=== PATIENT | male | born 1960 | race Caucasian/White ===

== ENCOUNTER 2019-10-19 05:57 | Day surgery (SDC) | payer BC ==
[2019-10-13 10:20] LABS: Absolute Lymphocytes (CBC) 2.1 K/uL (0.7-4.9); Basophils % 1.3 % (0-1.3); Hematocrit 46.7 % (39.6-49.0); Lymphocytes % 25.9 % (15.3-44.8); MPV 7.4 fL (7.6-11.3); RBC Red Blood Cell Count 5.09 M/uL (4.33-5.43)
[2019-10-13 10:26] LABS: Protime INR 0.91
[2019-10-13 10:34] LABS: Potassium 4.2 mmol/L (3.5-5.1)
--- NOTE | 2019-10-13 10:47 | RAD REPORT ---
EXAM DESCRIPTION: RAD - Chest Pa And Lat (2 Views) - 10/13/2019 9:58 am CLINICAL HISTORY: preop Chest pain. COMPARISON: CHEST PA AND LAT 2 VIEW dated 11/24/2013 FINDINGS: The lungs are clear. The heart is normal in size. No displaced fractures. IMPRESSION: No acute or concerning finding suspected.
--- NOTE | 2019-10-13 11:14 | EKG ---
Test Date: 2019-10-13 Test Time: 08:36:10 Gravel Wheeler: DESTIN MEASUREMENT RESULTS: Intervals: Rate: 60 LA: 148 QRSD: 86 QT: 426 QTc: 426 [place]: P: 48 LA: 148 QRS: 31 T: 32 INTERPRETIVE STATEMENTS: Normal sinus rhythm Septal infarct, age undetermined Abnormal ECG Compared to ECG 04/10/2004 10:25:00 No significant changes Electronically Signed On 10-13-19 11:13:24 CDT by Rian Dotson
--- OUTSIDE RECORDS SUMMARY | 2019-10-19 05:51 | XMS REPORT | Clinical Summary ---
:1960 Author Organization [facility] Address [address] [place] [address] Care Team Providers Name Role Phone Unavailable Primary Care Provider Unavailable Allergies Not on File Medications Not on file Active Problems Not on file Social History Tobacco Use Types Packs/Day Years Used Date Never Assessed Sex Assigned at Date Recorded Not on file Job Start Date Occupation Industry Not on file Not on file Not on file Travel History Travel Start Travel End No recent travel history available. 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
--- OUTSIDE RECORDS SUMMARY | 2019-10-19 05:52 | XMS REPORT ---
:1960 Author Organization [facility] t Address [address] [place] [address] Care Team Providers Name Role Phone ZACCA Attending Clinician Unavailable Problems Condition Condition Condition Status Onset Resolution Last Treating Co mments Source Name Details Category Date Date Treatment Clinician Date Impingemen Impingemen Problem Active [facility] syndrome t syndrome Elena kes - of right of right [facility] Pain in Pain in Problem Active [facility] - right right [facility] shoulder shoulder [facility] Tear of Tear of Problem Active [facility] right right [facility] - rotator rotator Memoria cuff, cuff, l unspecifie unspecifie Ou tpati d tear d tear ent extent, extent, Clinics unspecifie unspecifie d whether d whether traumatic traumatic Subacromia Subacromia Problem Active [facility] bursitis l bursitis Elena kes - of right of right Memori a shoulder shoulder l [facility] Arthrosis Arthrosis Problem Active [facility] of right of right [facility] - acromiocla acromiocla Me moria vicular vicular l joint joint [facility]pat[facility] ent Clinics Allergies, Adverse Reactions, Alerts This patient has no known allergies or adverse reactions. Social History Social Habit Start Date Stop Date Quantity Comments Source Sex Assigned At Beny Nick Medications Ordered Filled Start Stop Current Ordering Indication Dosage Frequency Signature Comments Components Source Medication Medication Date Date Medication? Clinician (SIG) Name Name Carvedilol Carvedilol Yes Catracho not [facility] Ramipril Ramipril Yes Catracho not [facility] Clopidogrel Clopidogrel Yes Catracho not [facility] Bisulfate Bisulfate Valiente defined Elena kes - [facility] Amlodipine Amlodipine Yes Catracho not [facility] Besylate Besylate Valiente defined [facility] Rosuvastati Rosuvastati Yes Catracho not [facility] n Calcium n Calcium Valiente defined Elena kes - [facility] Glimepiride Glimepiride Yes Catracho not [facility] Jardiance Jardiance Yes Catracho not [facility] Doxycycline Doxycycline Yes Catracho not [facility] Hyclate Hyclate Valiente defined [facility] Aspir-81 Aspir-81 Yes Catracho not [facility] Ciprofloxac Ciprofloxac Yes Catracho not [facility] in HCl in HCl Valiente defined [facility] Plenvu Plenvu Yes Catracho not [facility] Procedures This patient has no known procedures. Plan of Care Planned Activity Planned Date Details Comments Source Future Scheduled 2019-12-31 INFLUENZA VACCINE [facility] 00:00:00 [code = INFLUENZA VACCINE] Future Scheduled 2009 COLONOSCOPY SCREENING [place] [place] [facility] 00:00:00 [code = COLONOSCOPY SCREENING] Future Scheduled 2009 SHINGLES VACCINES [facility] 00:00:00 (#1) [code = SHINGLES VACCINES (#1)] Encounters Start End Encounter Admission Attending Care Care Encounter Source Date/Time Date/Time Type Type Clinicians Facility Department ID 2019-10-04 2019-10-04 [facility] [id number] [facility] [address] 08:45:00 08[facility]45[facility] 2019-09-27 2019-09-27 Outpatient [facility] [id number] [address] 10:33:00 10:33:00 [facility] 2019-08-29 2019-08-29 Out[facility] [id number] [address] 10:00:00 10:00:00 [facility] Clinics 2019-07-25 2019-07-25 Outpatient [facility] [id number] [address] [place] [address] 00:00:00 00:00:00 KR[place] [address] 2019-06-21 2019-06-21 Outpatient Marta Buckley [id number] [address] 10:15:00 10:15:00 [facility] 2019-06-08 2019-06-08 Outpatient Marta Buckley [id number] 09:45:00 09:45:00 [facility] 2019-06-07 2019-06-07 Outpatient Marta Buckley [id number] 16:29:00 16:29:00 [facility] Results This patient has no known results.
--- OUTSIDE RECORDS SUMMARY | 2019-10-19 05:52 | XMS REPORT ---
:1960 Author Organization [employer] Care Team Providers Name Role Phone Catracho Valiente Provider Role Unavailable Allergies, Adverse Reactions, Alerts Substance Reaction Event Type N.K.D.A. 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 Assessment Pain in joint of right shoulder M25.511 Active Problem Pain in joint of right shoulder M25.511 Active Problem Subacromial bursitis of right M75.51 Active shoulder joint Medications Medication Code System Code Instructions Start End Date Status Dos age Date Rosuvastatin [facility] 71167-28 Active not define d Calcium 87-83 Amlodipine NDC 0 Active not defined Besylate Clopidogrel [facility] 22615-02 Active not defined Bisulfate 67-07 Ciprofloxacin HCl [facility] 44305-09 Active not d efined 50-14 Jardiance [facility] 34744-22 Active not defined 53-30 Carvedilol [facility] 51567-05 Active not defined 51-01 Plenvu [facility] 60772-22 Active not defined 00-01 Doxycycline [facility] 68597-61 Active not defined Hyclate 59-30 Glimepiride [facility] 68716-02 Active not defined 13-01 Aspir-81 NDC 0 Active not defined Ramipril [facility] 99501-44 Active not defined 54-01 Results No Known Results Summary Purpose [employer] Submission
--- OUTSIDE RECORDS SUMMARY | 2019-10-19 05:52 | XMS REPORT ---
:1960 Author Organization [employer] Care Team Providers Name Role Phone Catracho Valiente Provider Role Unavailable Allergies, Adverse Reactions, Alerts Substance Reaction Event Type N.K.D.A. Info Not Available Non Drug Allergy Problems Problem Type Condition Code Onset Dates Condition Statu s Assessment Pain in joint of right shoulder M25.511 Active Assessment Impingement syndrome of right M75.41 Active shoulder Problem Impingement syndrome of right M75.41 Active shoulder Problem Pain in joint of right shoulder M25.511 Active Problem Tear of right rotator cuff, M75.101 Active unspecified tear extent, unspecified whether traumatic Assessment Subacromial bursitis of right M75.51 Active shoulder joint Assessment Tear of right rotator cuff, M75.101 Active unspecified tear extent, unspecified whether traumatic Problem Subacromial bursitis of right M75.51 Active shoulder joint Medications Medication Code System Code Instructions Start End Date Status Dos age Date Carvedilol [facility] 86523-264 Active not defined 1-01 Ramipril [facility] 62458-762 Active not defined 4-01 Clopidogrel [facility] 24178-107 Active not define d Bisulfate 7-07 Amlodipine ND 0 Active not defined Besylate Rosuvastatin [facility] 41442-218 Active not defin ed Calcium 7-83 Glimepiride [facility] 65249-829 Active not define d 3-01 Jardiance [facility] 07999-382 Active not defined 3-30 Doxycycline [facility] 27562-220 Active not define d Hyclate 9-30 Aspir-81 NDC 0 Active not defined Results No Known Results Summary Purpose [employer]Works Submission
--- OUTSIDE RECORDS SUMMARY | 2019-10-19 05:52 | XMS REPORT ---
[...] End Date Status Dos age Date Carvedilol [facility] 87218-497 Active not defined 1-01 Rosuvastatin [facility] 77944-459 Active not defin ed Calcium 7-83 Jardiance [facility] 32383-420 Active not defined 3-30 Glimepiride [facility] 24342-722 Active not define d 3-01 Amlodipine ND 0 Active not defined Besylate Doxycycline [facility] 99866-401 Active not define d Hyclate 9-30 glyBURIDE-metFORM [facility] 62807-553 Active not defined IN 3-11 Clopidogrel [facility] 34013-528 Active not define d Bisulfate 7-07 Ramipril [facility] 60597-205 Active not defined 4-01 Aspir-81 NDC 0 Active not defined Results No Known Results Summary Purpose [employer]ClinicalWorks Submission
--- OUTSIDE RECORDS SUMMARY | 2019-10-19 05:52 | XMS REPORT ---
:1960 Author Organization [employer] Care Team Providers Name Role Phone Catracho Valiente Provider Role Unavailable Allergies No Known Allergies Problems Problem Type Condition Code Onset Dates Condition Statu s Problem Impingement syndrome of right M75.41 Active shoulder Problem Pain in joint of right shoulder M25.511 Active Problem Tear of right rotator cuff, M75.101 Active unspecified tear extent, unspecified whether traumatic Problem Subacromial bursitis of right M75.51 Active shoulder joint Medications No Known Medications Results No Known Results Summary Purpose [employer]Works Submission
--- OUTSIDE RECORDS SUMMARY | 2019-10-19 05:52 | XMS REPORT ---
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
--- OUTSIDE RECORDS SUMMARY | 2019-10-19 05:53 | XMS REPORT ---
[...] End Date Status Dos age Date Rosuvastatin [facility] 35652-95 Active not define d Calcium 87-83 Amlodipine [place] 0 Active not defined Besylate Doxycycline [facility] 61226-18 Active not defined Hyclate 59-30 Clopidogrel [facility] 21981-70 Active not defined Bisulfate 67-07 Aspir-81 NDC 0 Active not defined Carvedilol [facility] 66307-95 Active not defined 51-01 Plenvu [facility] 43668-75 Active not defined 00-01 Jardiance [facility] 49554-18 Active not defined 53-30 Glimepiride [facility] 76320-43 Active not defined 13-01 Ciprofloxacin HCl [facility] 95908-93 Active not d efined 50-14 Ramipril [facility] 34593-79 Active not defined 54-01 Results No Known Results Summary Purpose eClinicalWorks Submission
--- OUTSIDE RECORDS SUMMARY | 2019-10-19 06:00 | XMS REPORT ---
[...] End Date Status Dos age Date Rosuvastatin [facility] 90584-87 Active not define d Calcium 87-83 Amlodipine NDC 0 Active not defined Besylate Clopidogrel [facility] 17492-66 Active not defined Bisulfate 67-07 Ciprofloxacin HCl [facility] 63683-88 Active not d efined 50-14 Jardiance [facility] 96962-69 Active not defined 53-30 Carvedilol [facility] 17914-69 Active not defined 51-01 Plenvu [facility] 47643-04 Active not defined 00-01 Doxycycline [facility] 51188-19 Active not defined Hyclate 59-30 Glimepiride [facility] 68262-18 Active not defined 13-01 Aspir-81 NDC 0 Active not defined Ramipril [facility] 89496-69 Active not defined 54-01 Results No Known Results Summary Purpose [employer]ClinicalWorks Submission
--- OUTSIDE RECORDS SUMMARY | 2019-10-19 06:00 | XMS REPORT | Clinical Summary ---
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
--- OUTSIDE RECORDS SUMMARY | 2019-10-19 06:00 | XMS REPORT ---
[...] Date Status Dos age Date Carvedilol [facility] 74857-343 Active not defined 1-01 Rosuvastatin [facility] 09738-650 Active not defin ed Calcium 7-83 Jardiance [facility] 82474-859 Active not defined 3-30 Glimepiride [facility] 04016-765 Active not define d 3-01 Amlodipine ND 0 Active not defined Besylate Doxycycline [facility] 41511-956 Active not define d Hyclate 9-30 glyBURIDE-metFORM [facility] 07235-921 Active not defined IN 3-11 Clopidogrel [facility] 23992-304 Active not define d Bisulfate 7-07 Ramipril [facility] 25347-310 Active not defined 4-01 Aspir-81 NDC 0 Active not defined Results No Known Results Summary Purpose eClinicalWorks Submission
--- OUTSIDE RECORDS SUMMARY | 2019-10-19 06:00 | XMS REPORT ---
[...] End Date Status Dos age Date Carvedilol [facility] 11773-433 Active not defined 1-01 Ramipril [facility] 14730-640 Active not defined 4-01 Clopidogrel [facility] 42043-797 Active not define d Bisulfate 7-07 Amlodipine ND 0 Active not defined Besylate Rosuvastatin [facility] 74847-803 Active not defin ed Calcium 7-83 Glimepiride [facility] 60760-345 Active not define d 3-01 Jardiance [facility] 72082-284 Active not defined 3-30 Doxycycline [facility] 09717-732 Active not define d Hyclate 9-30 Aspir-81 NDC 0 Active not defined Results No Known Results Summary Purpose [employer]ClinicalWorks Submission
--- OUTSIDE RECORDS SUMMARY | 2019-10-19 06:00 | XMS REPORT ---
:1960 Author Organization [facility] t Address [address] [place] [address] Care Team Providers Name Role Phone ZACCA [...] Future Scheduled 2019-12-31 INFLUENZA VACCINE [facility] 00:00:00 [code = INFLUENZA VACCINE] Future Scheduled 2009 COLONOSCOPY SCREENING [place] [facility] [facility] 00:00:00 [code = COLONOSCOPY SCREENING] Future Scheduled 2009 SHINGLES VACCINES [facility] 00:00:00 (#1) [code = SHINGLES VACCINES (#1)] Encounters Start End Encounter Admission Attending Care Care Encounter Source Date/Time Date/Time Type Type Clinicians Facility Department ID 2019-10-04 2019-10-04 Outpatient [facility] [id number] [facility] 08:45:00 08:45:00 [facility] 2019-09-27 2019-09-27 Outpatient [facility] [id number] [facility] 10:33:00 10:33:00 [facility] 2019-08-29 2019-08-29 Outpatient [facility] [id number] [facility] [facility] 10:00:00 10:00:00 [facility] Clinics 2019-07-25 2019-07-25 Outpatient [facility] [id number] [address] [place] [address] 00:00:00 00:00:00 KR[place] [address] 2019-06-21 2019-06-21 Outpatient Marta Buckley [id number] [facility] 10:15:00 10:15:00 [facility] 2019-06-08 2019-06-08 Outpatient Marta Buckley [id number] [facility] 09:45:00 09:45:00 [facility] 2019-06-07 2019-06-07 Outpatient Marta Buckley [id number] [facility] 16:29:00 16:29:00 [facility] Results This patient has no known results.
--- OUTSIDE RECORDS SUMMARY | 2019-10-19 06:01 | XMS REPORT ---
[...] End Date Status Dos age Date Rosuvastatin [facility] 81855-00 Active not define d Calcium 87-83 Amlodipine ND 0 Active not defined Besylate Doxycycline [facility] 67062-72 Active not defined Hyclate 59-30 Clopidogrel [facility] 72958-09 Active not defined Bisulfate 67-07 Aspir-81 NDC 0 Active not defined Carvedilol [facility] 42040-88 Active not defined 51-01 Plenvu [facility] 13424-66 Active not defined 00-01 Jardiance [facility] 10886-58 Active not defined 53-30 Glimepiride [facility] 96121-40 Active not defined 13-01 Ciprofloxacin HCl [facility] 30584-19 Active not d efined 50-14 Ramipril [facility] 29493-96 Active not defined 54-01 Results No Known Results Summary Purpose [employer]ClinicalWorks Submission
[2019-10-19] MEDS ORDERED: NA CHLORIDE 0.9% 1,000 ML ONE ×2 (06:08→09:33)
[2019-10-19] MEDS ORDERED: CEFAZOLIN/SWI 1gm 1 GM/10 ML SYR ONE (06:17)
[2019-10-19] MEDS ORDERED: NS 0.9% VIAL 20 ML ONE (06:42)
[2019-10-19] MEDS ORDERED: dexAMETHasone 10 MG/ML VIAL ONE ×2 (06:42→08:50)
[2019-10-19] MEDS ORDERED: LIDOCAINE 2% MPF 5 ML VIAL ONE ×2 (06:42→07:24)
[2019-10-19] MEDS ORDERED: FENTANYL CITR 100 MCG/2 ML ONE (06:42)
[2019-10-19] MEDS ORDERED: ROPLVACAINE HCL 40 ML ONE (06:43)
[2019-10-19] MEDS ORDERED: MIDAZOLAM HCL 2 MG/2 ML INJ ONE (06:43)
[2019-10-19] MEDS ORDERED: EPINEPHRINE/PF 1 MG/ML AMP ONE (06:50)
[2019-10-19] MEDS ORDERED: NS 0.9% VIAL 10 ML ONE ×2 (07:24→08:45)
[2019-10-19] MEDS ORDERED: ROCURONIUM 50 MG/5 ML VIAL IV ONE (07:24)
[2019-10-19] MEDS ORDERED: Phenylephrine HCl 10 MG/ML 1 ML VIAL ONE (07:24)
[2019-10-19] MEDS ORDERED: propofoL 200 MG/20 ML VIAL IV ONE (07:24)
[2019-10-19] MEDS ORDERED: EPHEDRINE SULF 50 MG/ML VIAL ONE (08:22)
[2019-10-19] MEDS ORDERED: KETOROLAC 30 MG/ML INJ ONE (08:50)
[2019-10-19] MEDS ORDERED: ONDANSETRON 4 MG/2 ML VIAL ONE (08:53)
--- NOTE | 2019-10-19 10:17 | P.BOP ---
Preoperative diagnosis: right rotator cuff tear, AC arthrosis, impingement syndrome Postoperative diagnosis: right shoulder partial rotator cuff tear with tendinosis Primary procedure: right shoulder arthroscopic rotator cuff debridement Secondary procedure: right shoulder arthroscopic subacromial decompression Other procedure(s): right shoulder arthroscopic distal clavicle excision Estimated blood loss: <10 cc Specimen: none Findings: see dictation Anesthesia: General Complications: None Implants: none Fluids & blood products: per anesthesia record Transferred to: Recovery Room Condition: Good
--- NOTE | 2019-10-19 10:49 | RAD REPORT ---
EXAM DESCRIPTION: RAD - Shoulder 1 View - 10/19/2019 10:41 am CLINICAL HISTORY: S P ROTATOR CUFF DEBRIDEMENT COMPARISON: No comparisons FINDINGS: Single frontal projection of the shoulder is submitted. Mild AC joint and glenohumeral radha nt arthritic changes are present. Mild soft tissue postsurgical air is seen. Slight cortical irregula rity seen along distal aspect of the clavicle.
[2019-10-19] MEDS ORDERED: HYDROCODONE/APAP 7.5/325 MG TAB ONE (11:39)
[2019-10-19 12:20] VITALS: BP 106/58; TEMP 97.2; O2SAT 98
--- NOTE | 2019-10-21 09:19 | OP ---
Date of Procedure: 10/19/2019 Surgeon: Catracho Valiente MD Preoperative Diagnoses: 1. Right shoulder rotator cuff tear. 2. Right shoulder acromioclavicular joint arthrosis. 3. Right shoulder impingement syndrome. Postoperative Diagnoses: 1. Right shoulder rotator cuff tear. 2. Right shoulder acromioclavicular joint arthrosis. 3. Right shoulder impingement syndrome. Procedures Performed: 1. Right shoulder arthroscopic rotator cuff debridement. 2. Right shoulder arthroscopic distal clavicle excision. Anesthesia: General endotracheal. Fluids: Per Anesthesia record. Complications: None. Indication For Procedure: Yvon is a 59-year-old male who presented to my clinic with signs and symptoms consistent with rotator cuff tear and impingement syndrome. Patient failed conservative treatment measures including corticosteroid injections, formal physical therapy. I discussed with the patient at length risks and benefits associated with operative and nonoperative treatment. He expressed understanding and elected to proceed with operative treatment. Description Of Procedure: After informed consent was obtained, the patient was identified in the preoperative holding area. His right upper extremity was marked. The patient was then taken to the PACU where he underwent an interscalene block to his right upper extremity which was performed by Anesthesia. He was then taken back to the operating room, transferred to the operating table in supine fashion and placed under general endotracheal anesthesia. He was then placed in a beach chair position with his extremities well padded. Right upper extremity was then prepped and draped in usual sterile fashion. A time-out was initiated. Correct patient and procedure were confirmed and identified. The patient then received his preoperative prophylactic antibiotics. Right shoulder was examined. The patient had full range of motion with no instability noted. Near the posterior portal position, a spinal needle was introduced into the glenohumeral joint. The shoulder was injected with 30 mL of normal saline to distend the capsule. A standard posterior portal was created and arthroscope was brought into the posterior portal position. Under direct visualization, an anterior portal was created and the cannula was placed. Diagnostic arthroscopy was performed. Patient was noted to have a Type I SLAP tear of the superior labrum, but the superior labrum was found to be stable to probe. The superior labrum was then debrided using the arthroscopic shaver. There was no instability noted to the anterior posterior labrum. There was mild chondromalacia noted over the glenoid surface. No significant chondromalacia of the humeral head. No loose bodies found within the axillary pouch. The subscapularis was found to be stable to probe with no significant tear. The undersurface of the supraspinatus and infraspinatus was evaluated. There were no significant tear on the articular surface of the tendon. The arthroscope was then brought into the subacromial space where the subacromial bursectomy was performed. There did appear to be some inflammatory tissue within the subacromial space. The supraspinatus and infraspinatus was probed using an obturator. The rotator cuff was probed. There was some mild inflammatory tissue within the musculotendinous junction. There was no full-thickness tear noted. The unhealthy tissue was then debrided using an arthroscopic shaver. Next, using a radiofrequency ablator, the undersurface of the acromion was then debrided. There was some scarring of the undersurface of the acromion and acromioplasty was performed using arthroscopic rene. Next, anterior portal was brought in the subacromial space. The distal clavicle was identified. Soft tissue was debrided off the undersurface of the distal clavicle using the radiofrequency ablator and an arthroscopic and distal clavicle incision was performed using an arthroscopic rene and approximately 8 mm of distal clavicle was excised. After this was completed, the arthroscopic instruments were removed without complication. Wounds were then irrigated and subcutaneous tissues were approximated using a 2-0 Vicryl. Skin and portals were approximated using a 3-0 Monocryl. Sterile dressings were applied. Patient was placed in a shoulder immobilizer, awakened, and transferred to PACU in stable condition. Postoperative Plan: Nonweightbearing to his right upper extremity. He will follow up in my clinic for wound check in 1 week and proceed with PT in 2 weeks per distal clavicle excision protocol. CV/MODL Voice ID: [id number] Report ID: [id number] LIAM
== END 2019-10-19 12:10 | disposition home or self-care (01) ==
LOC: OR 05:57
PROVIDERS: ATTEND Orthopaedic Surgery Sports Medicine
PROC: 0PB94ZZ Excision of Right Clavicle, Percutaneous Endoscopic Approach (ICD-10-PCS; 2019-10-19)
PROC: 0RNJ4ZZ Release Right Shoulder Joint, Percutaneous Endoscopic Approach (ICD-10-PCS; principal; 2019-10-19 07:30)
DX: M75.101 Unspecified rotator cuff tear or rupture of right shoulder, not specified as traumatic (principal); Z11.59 Encounter for screening for other viral diseases; M75.41 Impingement syndrome of right shoulder; M75.51 Bursitis of right shoulder; M19.011 Primary osteoarthritis, right shoulder; S43.431A Superior glenoid labrum lesion of right shoulder, initial encounter; E11.9 Type 2 diabetes mellitus without complications; I10 Essential (primary) hypertension; J44.9 Chronic obstructive pulmonary disease, unspecified; I25.10 Atherosclerotic heart disease of native coronary artery without angina pectoris; I25.2 Old myocardial infarction; Z79.82 Long term (current) use of aspirin; Z95.5 Presence of coronary angioplasty implant and graft; Z87.891 Personal history of nicotine dependence; Z82.49 Family history of ischemic heart disease and other diseases of the circulatory system
CPT/HCPCS: 93005; 85025; 80048; 36415; 85610; 82947 ×2; 85730; 71046; 73020; 29822; 29824; J2704; J0171; J2370; J2250; J3010; J1100 ×2; J2795; J0690; J7030 ×2; J2405

== ENCOUNTER 2023-04-22 06:12 | Day surgery (SDC) | payer BC ==
[2023-04-17 11:44] LABS: Hematocrit 42.2 % (39.6-49.0); Lymphocytes % 25.5 % (15.3-44.8); MCV 90.1 fL (80-100); MPV 7.5 fL (7.6-11.3); Platelets 260 thou/uL (152-406); RBC Red Blood Cell Count 4.68 M/uL (4.33-5.43)
[2023-04-17 11:48] LABS: Protime INR 0.98
[2023-04-17 11:51] LABS: Potassium 3.7 mEq/L (3.5-5.1)
--- NOTE | 2023-04-17 11:58 | RAD REPORT ---
EXAM DESCRIPTION: Beverly Worthington (2 Views)04/17/2023 11:41 am CLINICAL HISTORY: Preop shoulder surgery. Hypertension COMPARISON: 2019 FINDINGS: Calcified granuloma left lung. The lungs appear clear of acute infiltrate. The heart is normal size IMPRESSION: No acute abnormalities displayed
[2023-04-22] MEDS ORDERED: CEFAZOLIN SODIUM 1 GM/VIAL ONE ×2 (06:46→08:24)
[2023-04-22] MEDS ORDERED: NA CHLORIDE 0.9% 1,000 ML ONE (06:47)
[2023-04-22] MEDS ORDERED: dexAMETHasone 10 MG/ML VIAL ONE ×2 (07:03→08:25)
[2023-04-22] MEDS ORDERED: LIDOCAINE 1% MPF 5 ML VIAL ONE (07:03)
[2023-04-22] MEDS ORDERED: MIDAZOLAM HCL 2 MG/2 ML INJ ONE (07:03)
[2023-04-22] MEDS ORDERED: FENTANYL CITR 100 MCG/2 ML ONE (07:04)
[2023-04-22] MEDS ORDERED: EPINEPHRINE/PF 1 MG/ML AMP ONE ×2 (07:04→07:15)
[2023-04-22] MEDS ORDERED: propofoL 200 MG/20 ML VIAL IV ONE (07:54)
[2023-04-22] MEDS ORDERED: LIDOCAINE 2% MPF 5 ML VIAL ONE (07:54)
[2023-04-22] MEDS ORDERED: ROCURONIUM 50 MG/5 ML VIAL IV ONE (07:55)
[2023-04-22] MEDS ORDERED: EPHEDRINE SULF 50 MG/ML VIAL ONE (08:21)
[2023-04-22] MEDS ORDERED: TRIAMCINOLONE ACETON 40 MG/ML VIAL ONE (08:24)
[2023-04-22] MEDS ORDERED: BUPIVACAINE 0.5% PF 10 ML VIAL ONE (08:25)
[2023-04-22] MEDS ORDERED: ONDANSETRON 4 MG/2 ML VIAL ONE (08:25)
[2023-04-22] MEDS ORDERED: GLYCOPYRROLATE 0.2 MG/ML SYR ONE ×2 (09:11)
[2023-04-22] MEDS ORDERED: NEOSTIGMINE 1 MG/ML -10 ML VIAL ONE (09:11)
--- NOTE | 2023-04-22 09:21 | P.BOP ---
Preoperative diagnosis: left shoulder adhesive capsulitis Postoperative diagnosis: same Primary procedure: left shoulder manipulation under anesthesia Secondary procedure: left shoulder arthroscopic debridement and lysis of adhesions Battery Container Inspector: NONE,NONE Estimated blood loss: 5 cc Specimen: none Findings: see dictation Anesthesia: General Complications: None Implants: none Fluids & blood products: per anesthesia record Transferred to: Recovery Room Condition: Good
--- NOTE | 2023-04-22 11:24 | RAD REPORT ---
EXAM DESCRIPTION: Shoulder 1 View - 04/22/2023 10:04 am CLINICAL HISTORY: s/p L shoulder BRYNN, arthroscopic debridement COMPARISON: Shoulder Left Wo Cont dated 02/17/2023 TECHNIQUE: Single AP view of the left shoulder. FINDINGS: Postsurgical changes with limited soft tissue gas. Small radiodensity along the inferior m argin of the glenoid, indeterminate, and could be postsurgical or related to a small focus of mineral ization. There is no fracture or dislocation. AC joint is normal in appearance. No acute or suspiciou s findings. IMPRESSION: Postsurgical changes as above. Indeterminate radiodensity along the inferior margin of t he glenoid.
[2023-04-22 12:02] VITALS: BP 111/54; TEMP 96.5; O2SAT 98
--- NOTE | 2023-04-22 17:10 | EKG ---
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
--- NOTE | 2023-04-29 11:38 | OP ---
Date of Procedure: 04/22/2023 Surgeon: Catracho Valiente MD Preoperative Diagnosis: Left shoulder adhesive capsulitis. Postoperative Diagnosis: Left shoulder adhesive capsulitis. Procedures Performed: 1.Left shoulder manipulation under anesthesia. 2.Left shoulder arthroscopic debridement and lysis of adhesions. Anesthesia: General endotracheal. Fluids: See Anesthesia record. Estimated Blood Loss: 5 cc. Complications: None. Implants: None. Indication For Procedure: Yvon is a 63-year-old male who presented to my clinic with signs, sympto ms, and MRI findings consistent with a left shoulder adhesive capsulitis. Patient failed conservativ e treatment measures and had significant pain that interferes with his work as well as his activities of daily living. I discussed with the patient at length risks and benefits associated with operativ e and nonoperative treatment measures. He expressed understanding and elected to proceed with operat caro treatment. Description Of Procedure: After informed consent was obtained, the patient was identified in the pre operative holding area. The left upper extremity was marked. The patient underwent a left upper ext remity interscalene block performed by Anesthesia team in the PACU. The patient was then brought jarett to the operating room, transferred to the operating table in supine fashion, placed under general e ndotracheal anesthesia. A time-out was initiated. The correct patient and procedure was confirmed a nd identified. The patient did receive his preoperative prophylactic antibiotics. It was then perfo rmed to perform manipulation under anesthesia stabilizing the scapula with one hand and gentle pressu re was placed on the upper arm in a forward flexion manner at the shoulder. There were some light po ps palpable within the shoulder for some release of scar tissue as manipulation was performed and the n the shoulder was then brought in through abduction as well as external rotation for continued manip ulation of the shoulder. Next, the left upper extremity was then prepped and draped in usual sterile fashion. A time-out was initiated. The left shoulder joint was then injected with 30 cc of normal saline to distend the capsule from the posterior portal position. A posterior portal was then create d and arthroscope was then brought in via the posterior portal position. Diagnostic arthroscopy was performed. Under direct visualization, an anterior portal was placed. Patient had significant infla mmation, hyperemia at the anterior capsule as well as the rotator interval. There was no significant fraying or tearing of the biceps tendon at the anchor. However, there was significant hyperemia of the biceps tendon consistent with adhesive capsulitis as well as biceps tendinitis, superiorly it was found to be stable to probe. There were no loose bodies found within the axillary pouch. The subsc apularis was found to be stable and to probing intact. The undersurface of the rotator cuff was also found to be intact without significant tear. There was some hyperemia noted within the articular morel rface of the rotator cuff tendons consistent with his adhesive capsulitis. Lysis of adhesions was th en performed using an arthroscopic shaver as well as a radiofrequency ablator and the radial and the rotator interval were then debrided and released using a radiofrequency ablator as well as arthroscop ic shaver. The anterior and inferior capsule were then released just between the labrum as well as t he subscapularis using a radiofrequency ablator as well as an arthroscopic shaver again protecting th e axillary nerve at all times. Arthroscopic instruments were then removed without complication. The shoulder again was then manipulated gently by stabilizing the scapula with one hand and applying gen tle pressure. The patient had significant improvement of his range of motion with 130 degrees of for joshi flexion as well as 60 degrees of external rotation. The wounds were then irrigated thoroughly w ith normal saline. Subcutaneous tissue was approximated using a 2-0 Vicryl. Portals were approximat ed using a 4-0 Monocryl. Sterile dressings were applied. The patient was awakened and transferred t o PACU in stable condition. Postoperative Plan: The patient will begin physical therapy immediately to work on range of motion e xercises. He will follow up in 1 week for wound check. CV/MODL Voice ID: [id number] Report ID: [id number]
== END 2023-04-22 10:45 | disposition home or self-care (01) ==
LOC: OR 06:12
PROVIDERS: ATTEND Orthopaedic Surgery Sports Medicine
PROC: 0RNK4ZZ Release Left Shoulder Joint, Percutaneous Endoscopic Approach (ICD-10-PCS; 2023-04-22)
PROC: 0RBK4ZZ Excision of Left Shoulder Joint, Percutaneous Endoscopic Approach (ICD-10-PCS; principal; 2023-04-22 08:00)
DX: M75.02 Adhesive capsulitis of left shoulder (principal); M67.819 Other specified disorders of synovium and tendon, unspecified shoulder; E11.9 Type 2 diabetes mellitus without complications; I10 Essential (primary) hypertension; E78.00 Pure hypercholesterolemia, unspecified; Z86.73 Personal history of transient ischemic attack (TIA), and cerebral infarction without residual deficits
CPT/HCPCS: 93005; 85025; 80048; 36415; 85610; 82947 ×2; 85730; 71046; 73020; 29822; 29825; J2704; J2710; J0171 ×2; J3301; J2001 ×2; J2250; J3010; J1100 ×2; J2405; J7030; J0690 ×2

== ENCOUNTER 2025-01-27 06:01 | Day surgery (SDC) | payer OTHER ==
[2025-01-24 09:48] LABS: Absolute Lymphocytes (CBC) 1.7 K/uL (0.7-4.9); Hematocrit 47.5 % (39.6-49.0); Hemoglobin 15.9 g/dL (13.6-17.9); MCH 31.5 pg (27.0-35.0); MCHC 33.6 g/dL (32.0-36.0); MCV 93.7 fL (80-100); MPV 7.3 fL (7.6-11.3); Nucleated RBC Absolute Count 0.0 (0-0); Nucleated Red Blood Cells % 0.1 % (0-0); RBC Red Blood Cell Count 5.07 M/uL (4.33-5.43); White Blood Count 5.40 thou/uL (4.3-10.9)
[2025-01-24 09:54] LABS: PT Prothrombin Time 11.8 SECONDS (10-13.0); PTT, Activated Partial Thromb 30.0 SECONDS (27.2-37.4); Protime INR 1.05
[2025-01-24 09:59] LABS: Anion Gap 9.0 mEq/L (5.0-15.0); BUN Blood Urea Nitrogen 18.0 mg/dL (7-18); Glucose Level 167.0 mg/dL (74-106); Potassium 4.0 mEq/L (3.5-5.1)
--- NOTE | 2025-01-24 10:32 | RAD REPORT ---
EXAMINATION: TWO VIEW CHEST XR CLINICAL INDICATION: Male, 65 years old. Hypertension. Pre-op pending shoulder repair TECHNIQUE: 2 view radiographs of the chest were performed. COMPARISON: 05/02/2024 FINDINGS: The lungs are well inflated and clear. 3 mm calcified granuloma near the left apex, stable. No pneumo thorax or sizable effusion. The heart is normal in size. Mediastinal contours are unremarkable. IMPRESSION: No acute or significant abnormalities.
[2025-01-27] MEDS ORDERED: NA CHLORIDE 0.9% 1,000 ML ONE (06:24)
[2025-01-27] MEDS ORDERED: MIDAZOLAM HCL 2 MG/2 ML INJ ONE (06:38)
[2025-01-27] MEDS ORDERED: LIDOCAINE 1% MPF 5 ML VIAL ONE (06:38)
[2025-01-27] MEDS ORDERED: EPINEPHRINE 1 MG/ML VIAL ONE ×2 (06:39→07:29)
[2025-01-27] MEDS ORDERED: FENTANYL CITR 100 MCG/2 ML ONE (06:39)
[2025-01-27] MEDS ORDERED: LIDOCAINE 2% MPF 5 ML VIAL ONE (07:46)
[2025-01-27] MEDS ORDERED: ONDANSETRON 4 MG/2 ML VIAL ONE (07:46)
[2025-01-27] MEDS ORDERED: ROCURONIUM 50 MG/5 ML VIAL IV ONE (07:46)
[2025-01-27] MEDS ORDERED: KETOROLAC 30 MG/ML INJ ONE (07:46)
[2025-01-27] MEDS: CEFAZOLIN SODIUM 1 GM/VIAL ONE (08:00)
[2025-01-27] MEDS ORDERED: Phenylephrine HCl 10 MG/ML 1 ML VIAL ONE (08:43)
[2025-01-27] MEDS ORDERED: NS 0.9% VIAL 10 ML ONE ×2 (08:43→08:59)
[2025-01-27] MEDS: NA CHLORIDE 0.9% 1,000 ML ONE (09:30)
[2025-01-27] MEDS: BUPIVACAINE 0.5% PF 10 ML VIAL ONE (09:30)
--- NOTE | 2025-01-27 09:56 | P.BOP ---
Preoperative diagnosis: Left shoulder rotator cuff tear, biceps tendinitis, AC joint arthritis Postoperative diagnosis: Left partial rotator cuff tear, SLAP tear, AC arthritis, biceps tendinitis Primary procedure: Left shoulder arthroscopic rotator cuff debridement with biceps tenotomy Secondary procedure: Left shoulder open distal clavicle excision Media Marketing Coordinator: NONE,NONE Estimated blood loss: 10 cc Specimen: None Findings: See dictation Anesthesia: General Complications: None Implants: None Fluids & blood products: Per anesthesia record Transferred to: Recovery Room Condition: Good
--- NOTE | 2025-01-27 10:02 | P.OP ---
Preoperative diagnosis: Left shoulder rotator cuff tear, biceps tendinitis, AC arthritis Postoperative diagnosis: Left partial rotator cuff tear, biceps tendinitis, AC arthritis, SLAP tear Primary procedure: Left shoulder arthroscopic rotator cuff debridement with biceps tenotomy Secondary procedure: Left shoulder open distal clavicle excision Anesthesia: General Estimated blood loss: 10 cc Specimen: None Findings: See dictation Operative Technique: Indication For Procedure: Yvon is a 65-year-old male who presented to my clinic with signs, symptoms, and MRI findings consistent with a left shoulder partial-thickness rotator cuff tear and symptomatic AC arthritis. I discussed with the patient risks and benefits associated with operative and nonoperative treatment. He expressed understanding and elected to proceed with operative treatment. Description Of Procedure: After informed consent was obtained, the patient was identified in the preoperative holding area. The left upper extremity was marked. The patient then was brought to the PACU where he underwent a left- sided interscalene block performed by Anesthesia. The patient was brought back to the operating room, transferred to the operative table in supine fashion, placed under general endotracheal anesthesia. He was then placed in a beach chair position with his extremities well padded. The left upper extremity was then prepped and draped in usual sterile fashion. A time-out was initiated. The correct patient and procedure were performed and identified. The patient did receive preoperative prophylactic antibiotics. Via the posterior portal position, a spinal needle was introduced in the glenohumeral joint and the shoulder was injected with 30 cc of normal saline to distend the capsule. A stab incision was made posteriorly and a posterior portal was created. Arthroscope was brought in via the posterior portal position and diagnostic arthroscopy was performed. Under direct visualization, an anterior portal and cannula were created. The patient was noted to have a type 1 SLAP tear, which was debrided using the arthroscopic shaver. There were no significant instability of the superior labrum or anterior posterior labrum, which were stable to probe. There was fraying and tenosynovitis of the bicipital tendon both intra-articular and extra-articular. A biceps tenotomy was performed using a meniscal biter. The anchor was then debrided using the arthroscopic shaver. Subscapularis was found to be stable and intact to probe. There were no loose bodies within the axillary pouch. There was no significant articular sided rotator cuff tear. A lateral portal was created and a subacromial bursectomy was performed. Using an obturator the bursal side of the rotator cuff was evaluated. There was some fraying consistent with a partial-thickness tear which was debrided using arthroscopic shaver. There is no full-thickness tear appreciated. Arthroscopic instruments were then removed without complication. Next, attention was taken to the distal clavicle. Approximately a 4 cm horizontal incision was placed centered over the AC joint. Dissection was then taken down to the superior capsule of the AC joint. The capsule was then elevated off the superior distal clavicle both anterior and posteriorly. 1 cm was marked from the AC joint and using a saw, a distal clavicle excision was performed. Using a rasp the end of the distal clavicle was smoothed. The wound was then irrigated thoroughly with normal saline. The capsule was approximated using an 0 Vicryl. Wounds were then irrigated thoroughly with normal saline. Subcutaneous tissue was approximated using a 2-0 Vicryl. Portals were approximated using a 3-0 Monocryl. Sterile dressings were applied. Shoulder sling was placed. The patient was awakened and transferred to PACU in stable condition. Postoperative Plan: The patient will be nonweightbearing in a shoulder immob ilizer for 6 weeks. We will follow the distal clavicle excision protocol 3 weeks postoperatively. Complications: None Implants: None Fluids & blood products: Per anesthesia record Transferred to: Recovery Room Condition: Good
--- NOTE | 2025-01-27 10:47 | RAD REPORT ---
EXAM:Shoulder 1 View HISTORY: S/P L SHOULDER ARTHROSCOPIC ROTATOR CUFF CHAR, OPEN COMPARISON: None FINDINGS/IMPRESSION: Mild AC joint and glenohumeral joint arthritic changes. No fracture, dislocation or aggressive marrow lesion.
[2025-01-27 14:14] VITALS: BP 132/67; TEMP 97.3; O2SAT 97
== END 2025-01-27 11:55 | disposition home or self-care (01) ==
LOC: OR 06:01
PROVIDERS: ATTEND Orthopaedic Surgery Sports Medicine
PROC: 0RB Upper Joints, Excision (ICD-10-PCS; 2025-01-27)
PROC: 0RBK4ZZ Excision of Left Shoulder Joint, Percutaneous Endoscopic Approach (ICD-10-PCS; principal; 2025-01-27 08:00)
DX: M75.102 Unspecified rotator cuff tear or rupture of left shoulder, not specified as traumatic (principal); M75.22 Bicipital tendinitis, left shoulder; M75.42 Impingement syndrome of left shoulder; M19.012 Primary osteoarthritis, left shoulder; S43.432A Superior glenoid labrum lesion of left shoulder, initial encounter
CPT/HCPCS: 29822; 93005; 85025; 80048; 36415; 85610; 82947 ×2; 85730; 71046; 73020; 29824; A4216 ×2; J2704; J2003 ×2; J2371; J2250; J3010; J1100 ×2; J0171 ×2; J2405; J7030 ×2; J0690